=== PATIENT | male | born 1975 | race Caucasian/White ===

== ENCOUNTER → 2024-01-17 06:14 | Day surgery (SDC) | payer BC, SELFPAY | LOC: GI 06:14 | PROVIDERS: ATTENDING PHYSICIAN Internal Medicine Gastroenterology | DX: Z12.11 Encounter for screening for malignant neoplasm of colon (principal); K64.8 Other hemorrhoids | CPT/HCPCS: G0121 ==

== ENCOUNTER 2024-11-28 16:53 | Emergency (ER) | payer BC, SELFPAY ==
[2024-11-28 16:55] VITALS: BP 143/107
[2024-11-28 17:41] VITALS: BMI 28.5
[2024-11-28 17:51] LABS: % Basophils 0.9 % (0-2); % Eosinophils 2.5 % (0-6); % Immature Granulocytes 0.3 % (0-0.5); % Lymphocytes 34.3 % (20.5-51.1); % Monocytes 7.5 % (1.7-9.3); % Neutrophils 54.5 % (42.2-75.2); Absolute Basophils 0.1 10^3/uL (0-0.2); Absolute Eosinophils 0.2 10^3/uL (0-0.7); Absolute Lymphocytes 2.3 10^3/uL (1.2-3.4); Absolute Monocytes 0.5 10^3/uL (0.1-0.6); Absolute Neutrophils 3.7 10^3/uL (1.4-6.5); Hematocrit 42.2 % (39.0-52.0); Hemoglobin 14.4 g/dL (13.0-18.0); Mean Corp Hgb Conc. 34.1 g/dL (33.0-37.0); Mean Corpuscular Hgb 29.7 pg (27.0-31.0); Mean Platelet Volume 10.3 fL (7.4-10.4); Nucleated Red Blood Cells % 0 % (-); Platelet Count 224 10^3/uL (130-400); Red Blood Cell Count 4.85 10^6/uL (4.70-6.10); White Blood Cell Count 6.8 10^3/uL (4.8-10.8)
[2024-11-28 17:58] LABS: ALT (SGPT) 18 U/L (0-50); AST (SGOT) 24 U/L (17-59); Albumin 4.8 g/dl (3.5-5.0); Alkaline Phosphatase 75 U/L (38-126); Blood Urea Nitrogen 27 mg/dl (9-20); Calcium 9.5 mg/dl (8.4-10.2); Carbon Dioxide 23 mmol/L (22-30); Chloride 111 mmol/L (98-107); Estimated Creatinine Clearance 115 ml/min; Glucose 91 mg/dl (70-99); Potassium 4.4 mmol/L (3.5-5.1); Sodium 143 mmol/L (135-145); Total Bilirubin 0.6 mg/dl (0.2-1.3); Total Protein 7.8 g/dl (6.3-8.2); eGFR > 60.00
[2024-11-28 18:00] VITALS: BP 149/95
[2024-11-28 18:06] LABS: Troponin I < 0.012 ng/ml
--- NOTE | 2024-11-28 18:13 | ED.GENMED ---
History of Present Illness
General
Chief Complaint: Chest Pain
Source: patient
Time Seen by Provider: 11/28/24 17:54
History of Present Illness
History of Present Illness:
49-year-old male presents to the emergency room complaining of chest pain. The pain is located on the right chest. It began 3 days ago. Pain was worse today with right arm movement particularly pushing a swing. He denies shortness of breath. He
denies associated diaphoresis, nausea. Patient is eating and drinking normally. He has no known cardiac history. No recent trauma.
Past History
Past History
ED Past Medical History: None
Phy Exam
Physical Exam
Physical Exam:
General: Awake, Alert, Oriented X3. No acute distress.
Vitals: unremarkable
Head: Atraumatic
Eyes: Pupils equal, EOMI
Throat: Airway intact, no exudates
Neck: Trachea midline
Chest: Mild tenderness palpation right anterior chest wall
Lungs: Clear and equal b/l
Heart: Regular rate, no murmurs
Abd: Soft, Nontender, No pulsatile mass
Neuro: Nonfocal
Skin: Warm, dry, no rash
Extremities: pulses equal b/l, no edema
Scores
Heart Score for Chest Pain Patients
STEMI patient?: No
History: Slightly or Non-Suspicious
ECG: Normal
Age: >45 - <65 years
Risk Factors: No Risk Factors
Troponin: </= Normal Limit
Heart Score for Chest Pain Patients: 1
Heart Score Risk: 2.5% MACE over next 6 weeks
Course
Orders/Labs/Results
Orders:
Orders
11/28/24 16:57
Electrocardiogram (*1) Urgent
Reason for Study: Chest Pain
Cardiac Monitoring- Treatment ONCE
EKG- Treatment ONCE
IV Insert/Care/Rem.- Treatment PRN
O2 Therapy [RESP] Urgent
Titrate/Wean O2 to maintain O2 sat greater than (%): 90
Special Instructions: Maintain sats >/=90%
Pulse Ox/spot Check [RESP] Urgent
Quantity: 1
Special Instructions: ON ROOM AIR
11/28/24 17:05
Complete Blood Count/With Diff Urgent
Comprehensive Metabolic Panel Urgent
Troponin I Urgent
11/28/24 18:09
CR Chest - 2 Views Urgent
Comment:
Reason For Exam: Right-sided chest pain
11/28/24 18:13
Ibuprofen [Motrin] 600 mg PO NOW STA
11/28/24 18:22
D-Dimer Urgent
Abnormal Lab Results
11/28/24
17:05
Chloride 111 H mmol/L
(98-107)
BUN 27 H mg/dl
(9-20)
11/28/24 17:05
11/28/24 17:05
Vital Signs
Initial and Last Documented VS:
Initial Vital Signs
Temp Pulse Resp BP Pulse Ox
98.7 F 117 18 143/107 98
11/28/24 16:55 11/28/24 16:55 11/28/24 16:55 11/28/24 16:55 11/28/24 16:55
Last Documented Vital Signs
Temp Pulse Resp BP Pulse Ox
98.7 F 82 14 139/77 98
11/28/24 16:55 11/28/24 19:36 11/28/24 19:36 11/28/24 19:36 11/28/24 18:15
MDM/Problems Addressed
Differential Diagnosis Includes:
Agitated, PE, pneumothorax, muscle strain
MDM/Problems Addressed:
Patient presents with right upper chest pain also some neck pain and shoulder pain. Patient can reproduce the pain with certain motions. Overall seems suggestive of musculoskeletal pain. However testing was sent. Patient's troponin is normal.
EKG shows no ischemic changes. Chest x-ray shows no acute abnormality. Patient did have mild tachycardia at times. Therefore D-dimer was sent. It is normal. Suspicion for PE is quite low.
*Radiology
Radiology exam reviewed: preliminary read by ED provider (No acute abnormality on my review of the patient's chest x-ray.)
*Pulse Oximetry
SaO2: 98
Oxygen Mode of Delivery: Room air
Patient hypoxic: no
*EKG
Interpreted by ED Provider?: Yes
Heart Rate: 103
Rate: tachycardiac
Rhythm: sinus tachycardia
[place]: normal axis
Interval: normal interval
QRS Pattern: normal QRS
Ischemia: no ischemia
*Warper Creeler Interpretation
Rate: tachycardiac
Interpretation: abnormal
Heart Rate: 103
Rhythm: sinus tachycardia
*Critical Care Note
Total Time (30-74mins, 75-104mins- exclusive of procedures): Not Applicable
ED Attending Note
-
Portions of this chart may have been created with voice recognition software.� Occasional wrong word or��sound alike� substitutions may have occurred due to the inherent limitations of voice recognition software.
Discharge Plan
Departure
Patient Disposition: Home (Routine Discharge)
Date of Disposition: 11/28/24
Time of Disposition: 19:40
Patient with high blood pressure during this ER visit?: Yes
Condition: Good
Discharge Problem:
Acute chest wall pain
Instructions: Muscle strain, BLOOD PRESSURE
Referrals:
Suzette Vasquez MD [Family Provider, Family Practice]
Interventions
Interventions:
*Risk Screen - Suicide Last Done: 11/28/24 16:55
*General Assessment Last Done: 11/28/24 17:41
*Neglect/Abuse Screening Last Done: 11/28/24 16:55
*ED- Fall Risk Assessment Last Done: 11/28/24 17:41
*ED COVID-19 Vaccine History Last Done: 11/28/24 17:41
*Nursing Disposition Last Done: 11/28/24 19:48
ED- Cardiac Assessment Last Done: 11/28/24 17:42
Discharge Date and Time
Discharge Date/Time: 11/28/24 19:52
Print Language: FRENCH
[2024-11-28] MEDS: MOTRIN 600 MG PO (18:17)
[2024-11-28 18:41] LABS: D-Dimer 0.46 ug/mlFEU (0.00-0.50)
[2024-11-28 19:36] VITALS: BP 139/77
== END 2024-11-28 19:52 | disposition home or self-care (01) ==
LOC: EMR 16:53
PROVIDERS: EMERGENCY PHYSICIAN Emergency Medicine; FAMILY PHYSICIAN Family Medicine
DX: R07.89 Other chest pain (principal); R00.0 Tachycardia, unspecified
CPT/HCPCS: 99285; 94760; 71046; 80053; 84484; 85025; 85379; 93005